=== PATIENT | male | born 1955 | race Caucasian/White ===

== ENCOUNTER 2020-01-06 06:55 | Emergency (ER) | payer OTHER, MEDICAID ==
[~2020-01-06] VITALS: Ht 170.2 cm; Wt 74.8 kg
[2020-01-06 07:09] VITALS: BP 148/75
--- NOTE | 2020-01-06 07:40 | NUR ---
REPORT GIVEN TO [facility]. Patient discharged with v/s stable. Written and verbal after care instructions given and explained. Patient alert, oriented and verbalized understanding of instructions. Ambulatory with steady gait. All questions addressed prior to discharge. ID band removed. Patient advised to follow up with PMD. Rx of IBUPROFEN given. Patient educated on indication of medication including possible reaction and side effects. Opportunity to ask questions provided and answered. NO NURSING CARE PROVIDED IN OUR ER.
== END 2020-01-06 07:40 | disposition home or self-care (01) ==
LOC: MED 06:55
DX: K40.90 Unilateral inguinal hernia, without obstruction or gangrene, not specified as recurrent (principal); E11.9 Type 2 diabetes mellitus without complications; F17.210 Nicotine dependence, cigarettes, uncomplicated
CPT/HCPCS: 99282

== ENCOUNTER 2020-03-09 16:59 | Inpatient (IN) | payer OTHER, MEDICAID, SELFPAY ==
[~2020-03-09] VITALS: Ht 165.1 cm; Wt 75.7 kg
[~2020-03-09 16:59] MED LIST: APID SUBQ; GLIP5TAB4 PO; IBUP-2213 PO; LEVO750T2 PO; METF500T PO
[2020-03-09 17:03] VITALS: BP 134/89
[2020-03-09 18:03] LABS: BASOPHILS # (AUTO) 0.1 K/uL (0.00-0.22); BASOPHILS % (AUTO) 0.6 % (0.0-2.0); HEMATOCRIT 27.1 % (36-52); LYMPHOCYTES # (AUTO) 1.8 K/uL (2.0-11.5); LYMPHOCYTES % (AUTO) 20.6 % (20.5-51.1); MEAN CORPUSCULAR HEMOGLOBIN 28 pg (27-31); MEAN CORPUSCULAR HGB CONC 33 g/dL (33-37); MEAN CORPUSCULAR VOLUME 82.9 fL (80-94); MONOCYTES % (AUTO) 11.2 % (1.7-9.3); NEUTROPHILS # (AUTO) 5.8 K/uL (1.8-7.7); NEUTROPHILS % (AUTO) 67.6 % (42.2-75.2); PLATELET COUNT (AUTO) 442 K/uL (140-450); RED BLOOD CELL COUNT(AUTO) 3.26 MIL/uL (4.20-6.10); RED CELL DISTRIBUTION WIDTH 14.7 % (11.6-13.7); WHITE BLOOD COUNT (AUTO) 8.6 K/uL (4.8-10.8)
[2020-03-09 18:19] LABS: ALBUMIN 3.7 g/dL (3.4-5.0); ANION GAP 10.4 (8-16); CARBON DIOXIDE 28.1 mmol/L (21-32); POTASSIUM 4.5 mmol/L (3.5-5.1); TOTAL BILIRUBIN 0.2 mg/dL (0.0-1.0)
[2020-03-09] MEDS ORDERED: MORPHINE SULFATE 2 MG/ML SYR ONE (19:22)
[2020-03-09] MEDS ORDERED: ONDANSETRON 4 MG/2 ML VIAL ONE ×2 (19:23→22:30)
[2020-03-09] MEDS ORDERED: MORPHINE SULFATE 2 MG/ML SYR IVP ONE (19:35)
[2020-03-09] MEDS ORDERED: ONDANSETRON 4 MG/2 ML VIAL IVP ONE (19:35)
[2020-03-09] MEDS ORDERED: MORPHINE SULFATE 4 MG/ML SYR IVP ONE (20:20)
[2020-03-09] MEDS ORDERED: ACETAMINOPHEN 325 MG TAB PO PRN (20:35)
[2020-03-09] MEDS ORDERED: POTASSIUM CHLORIDE 40 MEQ, LIDOCAINE MPF 1% 25 MG in NACL 0.9% 250 ML IV PRN (20:35)
[2020-03-09] MEDS ORDERED: HYDROcodone/APAP 7.5/325 MG 1 TAB PO PRN (20:35)
[2020-03-09] MEDS ORDERED: guaiFENesin DM 200/20 MG-10 ML 10 ML UDC PO PRN (20:35)
[2020-03-09] MEDS ORDERED: DOCUSATE SODIUM 100 MG GELCAP PO PRN (20:35)
[2020-03-09] MEDS ORDERED: MORPHINE SULFATE 2 MG/ML SYR IVP PRN (20:35)
[2020-03-09] MEDS ORDERED: ONDANSETRON 4 MG/2 ML VIAL IM/IVP PRN (20:35)
[2020-03-09 20:56] LABS: PROTHROMBIN TIME 9.9 secs (10.8-13.4)
[2020-03-09] MEDS ORDERED: VITA400T14 PO (21:04)
[2020-03-09] MEDS ORDERED: TAMS0.4C96 PO (21:04)
[2020-03-09] MEDS ORDERED: CLOZ100T PO (21:04)
[2020-03-09] MEDS ORDERED: BENA20TA PO (21:04)
[2020-03-09] MEDS ORDERED: IBUP-2213 PO (21:04)
[2020-03-09] MEDS ORDERED: VARE1TAB27 PO (21:04)
[2020-03-09] MEDS ORDERED: LATA7.5D OP (21:04)
[2020-03-09] MEDS ORDERED: SIMV-31 PO (21:04)
[2020-03-09 21:07] LABS: CHOL/HDL RATIO 2.6 (1-4.5); FREE T4 (FREE THYROXINE) 1.02 ng/dL (0.76-1.46); MAGNESIUM 1.9 mg/dL (1.8-2.4); PHOSPHORUS 3.7 mg/dL (2.5-4.9); THYROID STIMULATING HORMONE 2.52 uIU/mL (0.34-3.74)
[2020-03-09] MEDS ORDERED: BUPIVACAINE-MPF 0.25% 30 ML VIAL INJ ONE (22:23)
[2020-03-09] MEDS ORDERED: LIDOCAINE 1% 500 MG/50 ML VIAL ONE (22:23)
[2020-03-09] MEDS ORDERED: PIPERACILLIN/TAZOBACTAM 3.375 GM VIAL IV ONE (22:24)
[2020-03-09] MEDS ORDERED: GLYCOPYRROLATE 0.2 MG/ML VIAL ONE (22:30)
[2020-03-09] MEDS ORDERED: ROCURONIUM 50 MG/5 ML VIAL IV ONE (22:30)
[2020-03-09] MEDS ORDERED: ETOMIDATE 20 MG/10 ML VIAL IVP ONE (22:30)
[2020-03-09] MEDS ORDERED: LIDOCAINE 2% 100 MG/5 ML SYR IVP ONE (22:30)
[2020-03-09] MEDS ORDERED: PROPOFOL 200 MG/20 ML VIAL IV ONE (22:30)
[2020-03-09] MEDS ORDERED: PHENYLEPHRINE 10 MG/ML VIAL ONE (22:30)
[2020-03-09] MEDS ORDERED: SEVOFLURANE 250 ML BTL INH ONE (22:30)
[2020-03-09] MEDS ORDERED: fentaNYL citrate 0.05 MG/ML VIAL ONE (22:30)
[2020-03-09] MEDS ORDERED: ePHEDrine 50 MG/ML VIAL ONE (22:30)
[2020-03-09] MEDS ORDERED: SUCCINYLCHOLINE CHLORIDE 200 MG/10 ML VIAL IVP ONE (22:30)
[2020-03-09] MEDS ORDERED: NEOSTIGMINE 1:1000 10 MG/10 ML VIAL ONE (22:30)
[2020-03-09] MEDS ORDERED: DEXAMETHASONE 4 MG/ML VIAL ONE (22:30)
[2020-03-09] MEDS ORDERED: DEXTROSE 50% 50 ML SYR IVP PRN (22:30)
[2020-03-10] MEDS ORDERED: HYDROmorphone 1 MG/ML AMP IVP PRN (00:35)
[2020-03-10] MEDS ORDERED: HYDROcodone/APAP 5/325 MG 1 TAB TAB PO PRN (00:35)
[2020-03-10] MEDS ORDERED: MORPHINE SULFATE 4 MG/ML SYR IV PRN (00:35)
[2020-03-10] MEDS ORDERED: MORPHINE SULFATE 2 MG/ML SYR IVP PRN (00:35)
[2020-03-10] MEDS ORDERED: ONDANSETRON 4 MG/2 ML VIAL IV PRN (00:35)
[2020-03-10 01:15] VITALS: BP 122/67
[2020-03-10] MEDS: DEXT 5% /NACL 0.9% 1,000 ML IV SCH ×4 (01:30→23:53)
[2020-03-10 04:00] VITALS: BP 123/72
[2020-03-10 05:03] LABS: BASOPHILS % (AUTO) 0.2 % (0.0-2.0); HEMATOCRIT 25.7 % (36-52); HEMOGLOBIN 8.4 g/dL (12.0-18.0); LYMPHOCYTES # (AUTO) 0.8 K/uL (2.0-11.5); LYMPHOCYTES % (AUTO) 6.6 % (20.5-51.1); MEAN CORPUSCULAR HEMOGLOBIN 27 pg (27-31); MEAN CORPUSCULAR HGB CONC 33 g/dL (33-37); MEAN CORPUSCULAR VOLUME 83.8 fL (80-94); MONOCYTES # (AUTO) 0.4 K/uL (0.8-1.0); MONOCYTES % (AUTO) 3.1 % (1.7-9.3); NEUTROPHILS # (AUTO) 10.4 K/uL (1.8-7.7); NEUTROPHILS % (AUTO) 90.1 % (42.2-75.2); PLATELET COUNT (AUTO) 393 K/uL (140-450); RED BLOOD CELL COUNT(AUTO) 3.07 MIL/uL (4.20-6.10); RED CELL DISTRIBUTION WIDTH 14.6 % (11.6-13.7); WHITE BLOOD COUNT (AUTO) 11.6 K/uL (4.8-10.8)
[2020-03-10 05:45] LABS: ANION GAP 12.5 (8-16); CARBON DIOXIDE 24.2 mmol/L (21-32); POTASSIUM 4.7 mmol/L (3.5-5.1)
[2020-03-10 08:00] VITALS: BP 113/62
[2020-03-10 08:17] LABS: HEMOGLOBIN 8.5 g/dL (12.0-18.0); MEAN CORPUSCULAR HEMOGLOBIN 27 pg (27-31); MEAN CORPUSCULAR HGB CONC 33 g/dL (33-37); MEAN CORPUSCULAR VOLUME 83.6 fL (80-94); PLATELET COUNT (AUTO) 403 K/uL (140-450); RED BLOOD CELL COUNT(AUTO) 3.12 MIL/uL (4.20-6.10); RED CELL DISTRIBUTION WIDTH 14.7 % (11.6-13.7); WHITE BLOOD COUNT (AUTO) 11.7 K/uL (4.8-10.8)
[2020-03-10] MEDS: BLOOD GLUCOSE MONITORING 1 DEV DEV FS SCH ×4 (08:19→20:54)
[2020-03-10] MEDS: INSULIN LISPRO SLIDING SCALE 100 UNITS/ML VIAL SUBQ PRN (08:21)
[2020-03-10] MEDS: BENAZEPRIL 20 MG TAB PO SCH (08:21)
[2020-03-10] MEDS: TAMSULOSIN 0.4 MG CAP PO SCH (08:21)
[2020-03-10] MEDS: PANTOPRAZOLE 40 MG TABEC PO SCH (08:22)
[2020-03-10] MEDS: SIMVASTATIN 20 MG TAB PO SCH (08:22)
[2020-03-10 08:29] LABS: LYMPHOCYTES % (MANUAL) 6 % (20-46); MONOCYTES % (MANUAL) 5 % (5-12)
[2020-03-10] MEDS ORDERED: cloZAPine 100 MG TAB PO SCH ×3 (09:00)
[2020-03-10 11:36] LABS: APPEARANCE,URINE CLEAR (CLEAR); BILIRUBIN,URINE NEGATIVE (NEGATIVE); BLOOD, URINE NEGATIVE (NEGATIVE); COLOR,URINE YELLOW (YELLOW); LEUKOCYTE ESTERASE ,URINE NEGATIVE (NEGATIVE); NITRITE, URINE NEGATIVE (NEGATIVE); UGLUCOSE NEGATIVE (NEGATIVE)
[2020-03-10 12:00] VITALS: BP 119/64
[2020-03-10 12:05] LABS: BARBITURATE, URINE NEGATIVE ng/ml (NEG <=200); BENZODIAZEPINE, URINE NEGATIVE ng/mL (NEG <=200); CANNABINOID, URINE NEGATIVE ng/mL (NEG <=50); COCAINE, URINE NEGATIVE ng/mL (NEG <=300); OPIATE, URINE POSITIVE ng/mL (NEG <=2000); PHENCYCLIDINE SCREEN,URINE NEGATIVE ng/mL (NEG <=25)
[2020-03-10] MEDS: PIPERACILLIN/TAZOBACTAM 3.375 GM in DEXTROSE 5% 50 ML IV SCH ×3 (12:48→23:53)
[2020-03-10 16:00] VITALS: BP 110/64
[2020-03-10 20:00] VITALS: BP 111/67
[2020-03-10] MEDS: ZOLPIDEM 5 MG TAB PO PRN (21:33)
[2020-03-11] VITALS: BP 91/51
[2020-03-11 04:00] VITALS: BP 106/63
[2020-03-11] MEDS: PIPERACILLIN/TAZOBACTAM 3.375 GM in DEXTROSE 5% 50 ML IV SCH ×4 (05:50→23:51)
[2020-03-11] MEDS: BLOOD GLUCOSE MONITORING 1 DEV DEV FS SCH ×4 (06:31→20:52)
[2020-03-11 06:33] LABS: BASOPHILS % (AUTO) 0.3 % (0.0-2.0); EOSINOPHILS % (AUTO) 0.1 % (0.0-4.0); HEMATOCRIT 22.6 % (36-52); HEMOGLOBIN 7.3 g/dL (12.0-18.0); LYMPHOCYTES # (AUTO) 2.1 K/uL (2.0-11.5); MEAN CORPUSCULAR HEMOGLOBIN 27 pg (27-31); MEAN CORPUSCULAR HGB CONC 32 g/dL (33-37); MEAN CORPUSCULAR VOLUME 83.3 fL (80-94); MONOCYTES # (AUTO) 1.6 K/uL (0.8-1.0); MONOCYTES % (AUTO) 12.6 % (1.7-9.3); NEUTROPHILS # (AUTO) 8.7 K/uL (1.8-7.7); PLATELET COUNT (AUTO) 372 K/uL (140-450); RED BLOOD CELL COUNT(AUTO) 2.71 MIL/uL (4.20-6.10); RED CELL DISTRIBUTION WIDTH 14.4 % (11.6-13.7); WHITE BLOOD COUNT (AUTO) 12.4 K/uL (4.8-10.8)
[2020-03-11 07:45] LABS: ANION GAP 16.8 (8-16); POTASSIUM 3.8 mmol/L (3.5-5.1)
[2020-03-11 08:00] VITALS: BP 119/62
[2020-03-11 08:08] LABS: FOLIC ACID 16.7 ng/mL (>3.0)
[2020-03-11 08:08] LABS: T4 (THYROXINE) 7.8 ug/dL (4.5-12.0)
[2020-03-11] MEDS ORDERED: CRUSHER, PILL MC ONE (08:22)
[2020-03-11] MEDS: TAMSULOSIN 0.4 MG CAP PO SCH (08:33)
[2020-03-11] MEDS: BENAZEPRIL 20 MG TAB PO SCH (08:35)
[2020-03-11] MEDS: PANTOPRAZOLE 40 MG TABEC PO SCH (08:35)
[2020-03-11] MEDS: SIMVASTATIN 20 MG TAB PO SCH (08:36)
[2020-03-11] MEDS: cloZAPine 100 MG TAB PO SCH (08:39)
[2020-03-11] MEDS: FERROUS SULFATE 325 MG TABEC PO SCH (10:24)
[2020-03-11] MEDS: DEXT 5% /NACL 0.9% 1,000 ML IV SCH (10:26)
[2020-03-11 12:00] VITALS: BP 130/61
[2020-03-11 16:00] VITALS: BP 139/70
[2020-03-11 20:00] VITALS: BP 116/62
[2020-03-11] MEDS: INSULIN LISPRO SLIDING SCALE 100 UNITS/ML VIAL SUBQ PRN (20:53)
[2020-03-11] MEDS: NACL 0.9% 1,000 ML IV SCH (20:59)
[2020-03-12] VITALS: BP 96/62
[2020-03-12 04:00] VITALS: BP 104/62
[2020-03-12] MEDS: PIPERACILLIN/TAZOBACTAM 3.375 GM in DEXTROSE 5% 50 ML IV SCH ×4 (05:34→23:06)
[2020-03-12 05:36] LABS: HEMATOCRIT 22.2 % (36-52); HEMOGLOBIN 7.4 g/dL (12.0-18.0); MEAN CORPUSCULAR HEMOGLOBIN 28 pg (27-31); MEAN CORPUSCULAR HGB CONC 33 g/dL (33-37); MEAN CORPUSCULAR VOLUME 83.5 fL (80-94); PLATELET COUNT (AUTO) 365 K/uL (140-450); RED BLOOD CELL COUNT(AUTO) 2.66 MIL/uL (4.20-6.10); RED CELL DISTRIBUTION WIDTH 14.3 % (11.6-13.7); WHITE BLOOD COUNT (AUTO) 9.6 K/uL (4.8-10.8)
[2020-03-12 05:51] LABS: ANION GAP 13.8 (8-16); CREATININE 0.9 mg/dL (0.6-1.3); POTASSIUM 3.8 mmol/L (3.5-5.1)
[2020-03-12] MEDS: BLOOD GLUCOSE MONITORING 1 DEV DEV FS SCH ×4 (06:21→20:18)
[2020-03-12 07:23] LABS: BASOPHILS % (MANUAL) 0 % (0-2); EOSINOPHILS % (MANUAL) 0 % (0-4); LYMPHOCYTES % (MANUAL) 21 % (20-46); MONOCYTES % (MANUAL) 11 % (5-12)
[2020-03-12] MEDS: NACL 0.9% 1,000 ML IV SCH ×2 (07:28→17:09)
[2020-03-12 08:00] VITALS: BP 120/64
[2020-03-12] MEDS: FERROUS SULFATE 325 MG TABEC PO SCH (08:21)
[2020-03-12] MEDS: PANTOPRAZOLE 40 MG TABEC PO SCH (08:22)
[2020-03-12] MEDS: TAMSULOSIN 0.4 MG CAP PO SCH (08:22)
[2020-03-12] MEDS: SIMVASTATIN 20 MG TAB PO SCH (08:22)
[2020-03-12] MEDS: BENAZEPRIL 20 MG TAB PO SCH (08:23)
[2020-03-12] MEDS: cloZAPine 100 MG TAB PO SCH (08:57)
[2020-03-12 12:00] VITALS: BP 135/73
[2020-03-12 16:00] VITALS: BP 135/75
[2020-03-12 20:00] VITALS: BP 126/68
[2020-03-12] MEDS: ZOLPIDEM 5 MG TAB PO PRN (20:27)
[2020-03-13] VITALS: BP 131/74
[2020-03-13] MEDS: NACL 0.9% 1,000 ML IV SCH ×2 (02:50→06:13)
[2020-03-13 04:00] VITALS: BP 119/72
[2020-03-13] MEDS: PIPERACILLIN/TAZOBACTAM 3.375 GM in DEXTROSE 5% 50 ML IV SCH ×2 (06:00→11:50)
[2020-03-13] MEDS: BLOOD GLUCOSE MONITORING 1 DEV DEV FS SCH ×2 (06:30→11:41)
[2020-03-13 08:00] VITALS: BP 132/74
[2020-03-13] MEDS: FERROUS SULFATE 325 MG TABEC PO SCH (08:23)
[2020-03-13] MEDS: BENAZEPRIL 20 MG TAB PO SCH (08:24)
[2020-03-13] MEDS: cloZAPine 100 MG TAB PO SCH (08:25)
[2020-03-13] MEDS: PANTOPRAZOLE 40 MG TABEC PO SCH (08:25)
[2020-03-13] MEDS: TAMSULOSIN 0.4 MG CAP PO SCH (08:39)
[2020-03-13] MEDS: SIMVASTATIN 20 MG TAB PO SCH (08:39)
[2020-03-13 08:48] LABS: ANION GAP 14.6 (8-16); CARBON DIOXIDE 25.6 mmol/L (21-32); POTASSIUM 4.2 mmol/L (3.5-5.1)
[2020-03-13 08:49] LABS: CREATININE 1.1 mg/dL (0.6-1.3)
[2020-03-13 09:16] LABS: RED BLOOD CELL COUNT(AUTO) 2.83 MIL/uL (4.20-6.10); WHITE BLOOD COUNT (AUTO) 8.1 K/uL (4.8-10.8)
[2020-03-13 09:17] LABS: HEMATOCRIT 23.4 % (36-52); HEMOGLOBIN 7.9 g/dL (12.0-18.0); LYMPHOCYTES % (AUTO) 23.9 % (20.5-51.1); MEAN CORPUSCULAR HEMOGLOBIN 28 pg (27-31); MEAN CORPUSCULAR HGB CONC 34 g/dL (33-37); MEAN CORPUSCULAR VOLUME 82.7 fL (80-94); MONOCYTES % (AUTO) 13.2 % (1.7-9.3); NEUTROPHILS % (AUTO) 62.1 % (42.2-75.2); PLATELET COUNT (AUTO) 408 K/uL (140-450); RED CELL DISTRIBUTION WIDTH 14.2 % (11.6-13.7)
[2020-03-13 09:18] LABS: BASOPHILS # (AUTO) 0.1 K/uL (0.00-0.22); BASOPHILS % (AUTO) 0.7 % (0.0-2.0); EOSINOPHILS % (AUTO) 0.1 % (0.0-4.0); LYMPHOCYTES # (AUTO) 1.9 K/uL (2.0-11.5); MONOCYTES # (AUTO) 1.1 K/uL (0.8-1.0)
[2020-03-13] MEDS ORDERED: PANT40EC56 PO (10:01)
[2020-03-13] MEDS ORDERED: DOCU-299 PO (10:01)
[2020-03-13] MEDS ORDERED: PIPE1SOL IV (10:01)
[2020-03-13] MEDS ORDERED: MORP2SOL18 IVP (10:01)
[2020-03-13] MEDS ORDERED: ACET-9525 PO (10:01)
[2020-03-13] MEDS ORDERED: FER325 PO (10:01)
[2020-03-13] MEDS ORDERED: ASCO500T95 PO (10:03)
[2020-03-13 12:00] VITALS: BP 131/71
[2020-03-13] MEDS ORDERED: FLU VACCINE QS2020-21 0.5 ML SYR IMVAC PRN (12:00)
[2020-03-13 12:01] VITALS: BP 132/76
== END 2020-03-13 16:00 | DRG 351 ==
LOC: MED 16:59 → MTU 20:30
PROVIDERS: ADMIT Family Medicine; ATTEND Family Medicine
PROC: 0YU50JZ Supplement Right Inguinal Region with Synthetic Substitute, Open Approach (ICD-10-PCS; principal; 2020-03-10)
DX: K40.30 Unilateral inguinal hernia, with obstruction, without gangrene, not specified as recurrent (principal); K44.0 Diaphragmatic hernia with obstruction, without gangrene; E11.9 Type 2 diabetes mellitus without complications; I87.8 Other specified disorders of veins; F25.9 Schizoaffective disorder, unspecified; F70 Mild intellectual disabilities; Z20.828 Contact with and (suspected) exposure to other viral communicable diseases; D17.5 Benign lipomatous neoplasm of intra-abdominal organs; D64.9 Anemia, unspecified
CPT/HCPCS: 36415; 71045; 74018; 80048; 80053; 80305; 81003; 82150; 82607; 82728; 82746; 82948; 83036; 83540; 83605; 83690; 83735; 83880; 84100; 84436; 84439; 84443; 84479; 84484; 85025; 85045; 85610; 85730; 86886; 86900; 86901; 87081; 96374; 96375; 96376; 97116; 97161-GP; 99285; C1781; J0330; J1100; J1170; J1644; J2001; J2270; J2370; J2405; J2543; J2704; J2710; J3010; J3480; J3490; J7030; J7042; J7060; Q0092; Q9967